=== PATIENT | female | born 1955 | race Caucasian/White ===

== ENCOUNTER 2017-11-22 07:33 | Day surgery (SDC) | payer BC ==
[~2017-11-22] VITALS: Ht 167.6 cm; Wt 83.9 kg
[2017-11-22] MEDS ORDERED: LIDOCAINE 2% 100 MG/5 ML UJET TP ONE (08:35)
[2017-11-22] MEDS ORDERED: MIDAZOLAM 2 MG/2 ML VIAL ONE (09:21)
[2017-11-22] MEDS ORDERED: fentaNYL 0.05 MG/ML VIAL ONE (09:21)
== END 2017-11-22 10:18 | disposition home or self-care (01) ==
LOC: MDS 07:33 → MMU 07:34 → MDS 10:18
PROVIDERS: ATTEND Internal Medicine Gastroenterology
DX: Z12.11 Encounter for screening for malignant neoplasm of colon (principal); K57.30 Diverticulosis of large intestine without perforation or abscess without bleeding; K64.8 Other hemorrhoids; E66.9 Obesity, unspecified; Z90.710 Acquired absence of both cervix and uterus; Z79.899 Other long term (current) drug therapy; Z68.30 Body mass index [BMI] 30.0-30.9, adult; M19.90 Unspecified osteoarthritis, unspecified site; Z98.890 Other specified postprocedural states
CPT/HCPCS: 45378; 82948; J3010; J2250